=== PATIENT | female | born 1990 | race Caucasian/White ===

== ENCOUNTER 2017-08-21 19:34 | Inpatient (IN) | payer OTHER ==
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
[2017-08-21 19:53] LABS: PLATELET COUNT 333 10^3/uL (150-400)
[2017-08-21 20:00] LABS: INR 0.96 (0.83-1.16)
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
[2017-08-21] MEDS ORDERED: PROPOFOL 200 MG/20 ML VIAL ONE (20:42)
[2017-08-21] MEDS ORDERED: HYDROmorphONE/DILAUDID 2 MG/ML INJ ONE (20:42)
[2017-08-21] MEDS ORDERED: NALOXONE HCL 0.4 MG/ML INJ IVP PRN (20:42)
[2017-08-21] MEDS ORDERED: ONDANSETRON DISINTEGRATING 4 MG TAB PO PRN ×2 (20:42→21:25)
[2017-08-21] MEDS ORDERED: fentaNYL 100 MCG/2 ML INJ ONE ×3 (20:42→23:34)
[2017-08-21] MEDS ORDERED: BUPIVACAINE 0.25% 30 ML SDV ONE (21:19)
[2017-08-21] MEDS ORDERED: EPINEPHrine 1 MG/ML INJ ONE (21:20)
[2017-08-21] MEDS ORDERED: THROMBIN (BOVINE) 5,000 UNIT VIAL TP ONE (21:20)
[2017-08-21] MEDS ORDERED: CHLORHEXIDINE GLUC HIBICLENS 118 ML BTL TP ONE (21:21)
[2017-08-21] MEDS ORDERED: BACITRACIN 50,000 UNITS/10 ML SYR IRR ONE (21:21)
[2017-08-21] MEDS ORDERED: AVITENE POWDER 1 GM JAR TP ONE (21:21)
[2017-08-21] MEDS ORDERED: METHOCARBAMOL 750 MG TAB PO PRN (21:25)
[2017-08-21] MEDS ORDERED: BISACODYL 10 MG SUPP PR PRN (21:25)
[2017-08-21] MEDS ORDERED: diphenhydrAMINE 25 MG CAP PO PRN (21:25)
[2017-08-21] MEDS ORDERED: POLYETHYLENE GLYCOL 3350 17 GM PKT PO PRN (21:25)
[2017-08-21] MEDS ORDERED: LACTULOSE 20 GM/30 ML UDCUP PO PRN (21:25)
[2017-08-21] MEDS ORDERED: MAGNESIUM HYDROXIDE 30 ML UDCUP PO PRN (21:25)
[2017-08-21] MEDS ORDERED: THROMBIN (BOVINE) 20,000 UNIT VIAL TP ONE (21:27)
[2017-08-21] MEDS ORDERED: PHENYLEPHRINE HCL 50 MG in NS 250 ML IV ONE (22:00)
[2017-08-21] MEDS ORDERED: SURGIFLO MATRIX KIT WITH THROMBIN 8 ML TP ONE (22:03)
[2017-08-21] MEDS ORDERED: DEXAMETHASONE 4 MG/ML VIAL ONE (23:34)
[2017-08-21] MEDS ORDERED: PHENYLEPHRINE HCL 100 MCG/ML SYR ONE (23:34)
[2017-08-21] MEDS ORDERED: ROCURONIUM 50 MG/5 ML VIAL ONE (23:34)
[2017-08-21] MEDS ORDERED: ONDANSETRON 4 MG/2 ML VIAL ONE (23:34)
--- NOTE | 2017-08-22 00:03 | PDANEPAE ---
ANE History of Present Illness T8 Compression Fracture ANE Past Medical History - Cardiovascular History Hx Hypertension: No Hx Arrhythmias: No Hx Chest Pain: No Hx Coronary Artery / Peripheral Vascular Disease: No Hx CHF / Valvular Disease: No Hx Palpitations: No - Pulmonary History Hx COPD: No Hx Asthma/Reactive Airway Disease: No Hx Recent Upper Respiratory Infection: No Hx Oxygen in Use at Home: No - Neurologic History Neurologic History Comment: T8 Compression Fracture - Endocrine History Hx Diabetes: No ANE Review of Systems Review of systems is: negative Review of Systems: Lower body no sensation - Exercise capacity METS (RN): 4 METS ANE Patient History - Allergies Allergies/Adverse Reactions: amoxicillin Allergy (Verified 08/21/17 20:37) - Smoking Hx Smoking Status: Never smoked ANE Labs/Vital Signs - Labs Result Diagrams: 08/21/17 17:25 08/21/17 17:25 - Vital Signs Blood Pressure: 123/74 Heart Rate: 59 Respiratory Rate: 68 O2 Sat (%): 100 Height: 157.48 cm Weight: 52.163 kg ANE Physical Exam - Airway Neck exam: C-collar in place Mallampati Score: Class 2 Mouth exam: normal dental/mouth exam - Pulmonary Pulmonary: no respiratory distress - Cardiovascular Cardiovascular: regular rate and rhythym - ASA Status ASA Status: III, E ANE Anesthesia Plan Anesthesia Plan: general endotracheal anesthesia Lines/Monitors: arterial line, central line Urgent/Emergent Case: Heidy pena completed preop but documented later for safe timely pt care
--- NOTE | 2017-08-22 00:23 | POSTOPPROG ---
Post Op Note Date of Operation: 08/22/17 Surgeon: Nelson Zendejas Blister Pack Operator: Ramu Rasmussen Anesthesiologist: yolanda duncan Anesthesia: GET(General Endotracheal) Pre-op Diagnosis: T8 burst fx and SCI Post-op Diagnosis: T8 burst fx and SCI Indication: unstable spinal column Procedure: T6-10 PSF, T7-8 laminectomy, partial T8 corpectomy Findings: unstable fx Inf/Abcess present in the surg proc area at time of surgery?: No Depth: Organ Space EBL: 100-500 Drains: Ky Figueroa
[2017-08-22] MEDS ORDERED: NOREPINEPHRINE/NS 500 ML IV SCH (00:30)
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
[2017-08-22] MEDS ORDERED: fentaNYL 100 MCG/2 ML INJ ONE (00:46)
[2017-08-22] MEDS: ONDANSETRON 4 MG/2 ML VIAL IVP PRN (01:00)
[2017-08-22] MEDS ORDERED: ONDANSETRON 4 MG/2 ML VIAL ONE (01:06)
--- NOTE | 2017-08-22 01:06 | POSTANESTH ---
Post Anesthetic Evaluation Cardiovascular Status: Normal, Stable, Tx Hyper/Hypo-tension Respiratory Status: Normal, Stable Level of Consciousness/Mental Status: Can Participate in Eval Pain Control: Adequate, Prn Tx Ordered Nausea/Vomiting Control: Adequate, Prn Tx Ordered Complications Possibly Related to Anesthesia: None Noted
[2017-08-22] MEDS ORDERED: ceFAZolin 2 GM/SWFI 2 GM/20 ML SYR IVP SCH (01:15)
[2017-08-22] MEDS ORDERED: NOREPINEPHRINE BITARTRATE 4 MG in NS 500 ML IV SCH (01:30)
[2017-08-22] MEDS ORDERED: METOCLOPRAMIDE 10 MG/2 ML VIAL ONE (01:32)
[2017-08-22] MEDS: GABAPENTIN 300 MG CAP PO SCH ×4 (01:44→22:11)
[2017-08-22] MEDS ORDERED: SCOPOLAMINE HYDROBROMIDE 1 MG/3 DAYS PATCH TD SCH (01:45)
[2017-08-22] MEDS: BACITRACIN ZINC 14.2 GM OINTTUBE TP SCH ×3 (01:45→23:14)
[2017-08-22] MEDS: METOCLOPRAMIDE 10 MG/2 ML VIAL IVP PRN (01:45)
[2017-08-22] MEDS: LR 1,000 ML IV SCH ×3 (01:54→23:14)
[2017-08-22] MEDS: HYDROmorphone HCL/NS 0.5 MG/ML SYR IVP PRN ×6 (01:57→22:07)
[2017-08-22] MEDS: oxyCODONE IR 5 MG TAB PO PRN ×4 (05:12→20:03)
[2017-08-22] MEDS: ACETAMINOPHEN 325 MG TAB PO PRN ×3 (05:12→20:02)
[2017-08-22 05:32] LABS: PLATELET COUNT 240 10^3/uL (150-400)
--- NOTE | 2017-08-22 08:09 | SOAPPROG ---
SOAP Progress Note Assessment/Plan: Assessment: 27 yo F POD #1 T6-T10 instrumentation and fusion for T8 burst fracture T8 YISSEL A spinal cord injury Plan: neuro: stable, still no sensation below lower chest PT/OT cervical spine cleared, patient does not need hard collar scd/khloe for dvt propylaxis, lovenox starts POD #2 keep MAPs > 85 for 7 days, on levo now, will give bolus of albumin and can switch to carroll if needed thoracic x-rays today will need inpatient rehab, likely [facility] discussed with Dr Zendejas please call with neuro changes 08/22/17 08:05 Subjective: general shoulder pain this am, thoracic spine feels better today, no neck pain, no arm pain or arm paresthesias. Objective: Vital Signs Temp Pulse Resp BP Pulse Ox 37.2 C 85 18 142/66 H 95 08/22/17 06:00 08/22/17 07:00 08/22/17 07:00 08/22/17 07:00 08/22/17 07:00 Laboratory Results 08/22/17 04:45 08/22/17 04:45 08/21/17 08/22/17 08/23/17 05:59 05:59 05:59 Intake Total 1702.5 Output Total 800 Balance 902.5 PT 13.0 SEC (12.0-15.0) 08/21/17 17:25 INR 0.96 (0.83-1.16) 08/21/17 17:25 AAOx4, +FC PERRL, EOMI, no facial droop 5/5 arms, 0/5 legs no sensation below approximately T8 C/D/I no pain with palpation of cervical spine, no pain with cervical ROM ICD10 Worksheet Patient Problems: Problems Problem Status Onset Abrasions of multiple sites Acute Burst fracture of thoracic vertebra Acute Hemothorax on left Acute Ribs, multiple fractures Acute Spinal cord injury at T7-T12 level Acute
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
[2017-08-22] MEDS ORDERED: BISACODYL 10 MG SUPP PR SCH (09:00)
[2017-08-22] MEDS ORDERED: ALBUMIN 5% 250 ML IV ONE (09:00)
[2017-08-22] MEDS ORDERED: ENOXAPARIN 40 MG/0.4 ML SYR SC SCH (09:00)
[2017-08-22] MEDS: FAMOTIDINE 20 MG TAB PO SCH ×2 (09:01→20:03)
--- NOTE | 2017-08-22 09:09 | SOAPPROG ---
SOAP Progress Note Assessment/Plan: Assessment: thoracic spine cord injury, s/p orif fusion. left hemothorax and rib fx Plan: leave chest tube in today slowly institiue diet. maintain map greater than 65 with carroll or levo start bowel protocol. 08/22/17 09:03 Subjective: alert, minimal pain. can't move lower extremities, no feeling at toes. Objective: heent wnl lungs clear heart nml s1s2 no m abd soft. hands without hand mild tpoa;in with motion r shoulder. lower extremities withoiut sensation or movement labs all ok chesttube- no air leak Vital Signs Temp Pulse Resp BP Pulse Ox 37.2 C 86 16 137/65 H 91 L 08/22/17 06:00 08/22/17 08:00 08/22/17 08:00 08/22/17 08:00 08/22/17 08:00 Laboratory Results 08/22/17 04:45 08/22/17 04:45 08/21/17 08/22/17 08/23/17 05:59 05:59 05:59 Intake Total 1702.5 Output Total 800 225 Balance 902.5 -225 PT 13.0 SEC (12.0-15.0) 08/21/17 17:25 INR 0.96 (0.83-1.16) 08/21/17 17:25 ICD10 Worksheet Patient Problems: Problems Problem Status Onset Abrasions of multiple sites Acute Burst fracture of thoracic vertebra Acute Hemothorax on left Acute Ribs, multiple fractures Acute Spinal cord injury at T7-T12 level Acute
--- NOTE | 2017-08-22 09:11 | TRAUMAPNT ---
Trauma Tertiary Progress Note Assessment/Plan: Assessment: thoracic spine cord injury, s/p orif fusion. left hemothorax and rib fx Plan: leave chest tube in today slowly institiue diet. maintain map greater than 65 with carroll or levo start bowel protocol. 08/22/17 09:03 Objective: Vital Signs Temp Pulse Resp BP Pulse Ox 37.2 C 86 16 137/65 H 91 L 08/22/17 06:00 08/22/17 08:00 08/22/17 08:00 08/22/17 08:00 08/22/17 08:00 Laboratory Results 08/22/17 04:45 08/22/17 04:45 08/21/17 08/22/17 08/23/17 05:59 05:59 05:59 Intake Total 1702.5 Output Total 800 225 Balance 902.5 -225 PT 13.0 SEC (12.0-15.0) 08/21/17 17:25 INR 0.96 (0.83-1.16) 08/21/17 17:25 pot examained- no new injuries identified. - C-Spine Clearance Cervical Spine Cleared: Yes Provider who Cleared Cervical Spine: veto
[2017-08-22] MEDS: SENNOSIDES/DOCUSATE SODIUM TAB PO SCH ×3 (09:51→20:03)
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
--- NOTE | 2017-08-22 15:42 | ASMTCMCOM ---
CM Note CM Note Notes: Patient's parents did arrive from [place]. Spoke with patient and her parents. They would like the referral to [facility] to be sent which was done today. Left a message for Magdalena at [facility] to see if she can make suggestions for rentals close to [facility] for patient's parents. Also gave them some suggestions for getting a hotel while they are here in [place]. Family seems to be coping well initially. CM will follow. Date Signed: 08/22/2017 03:42 PM Electronically Signed By:Cherelle Webber LCSW
[2017-08-22] MEDS: PHENYLEPHRINE HCL 50 MG in NS 250 ML IV SCH (20:57)
[2017-08-23] MEDS: PHENYLEPHRINE HCL 50 MG in NS 250 ML IV SCH ×3 (01:40→20:21)
[2017-08-23] MEDS: HYDROmorphone HCL/NS 0.5 MG/ML SYR IVP PRN (04:18)
[2017-08-23] MEDS: ONDANSETRON 4 MG/2 ML VIAL IVP PRN ×2 (04:20→09:08)
[2017-08-23] MEDS: ACETAMINOPHEN 325 MG TAB PO PRN ×3 (05:20→17:11)
[2017-08-23] MEDS: GABAPENTIN 300 MG CAP PO SCH ×3 (05:20→21:43)
[2017-08-23] MEDS: METOCLOPRAMIDE 10 MG/2 ML VIAL IVP PRN (06:43)
[2017-08-23] MEDS: SENNOSIDES/DOCUSATE SODIUM TAB PO SCH ×3 (08:04→21:46)
[2017-08-23] MEDS: ENOXAPARIN 40 MG/0.4 ML SYR SC SCH (08:04)
[2017-08-23] MEDS: FAMOTIDINE 20 MG TAB PO SCH ×2 (08:04→21:43)
[2017-08-23] MEDS: BACITRACIN ZINC 14.2 GM OINTTUBE TP SCH ×2 (08:04→21:45)
--- NOTE | 2017-08-23 09:10 | NEUSURGPN ---
Assessment/Plan: Assessment: 27 yo F POD #2 T6-T10 instrumentation and fusion for T8 burst fracture T8 YISSEL A spinal cord injury Plan: neuro: stable, still no sensation below lower chest PT/OT cervical spine cleared, patient does not need hard collar scd/khloe for dvt propylaxis, lovenox starts today keep MAPs > 85 for 7 days, on levo now, will give bolus of albumin and can switch to carroll if needed thoracic x-rays show well placed hardware and excellent alignment. reviewed with pt and family today. JOHN drain - likely remove tomorrow Dressing changed today and incision cdi will need inpatient rehab, likely [facility] discussed with Dr Zendejas please call with neuro changes Subjective: Pt resting in bed, has continued numbness in trunk and legs. States that the leg tingling has lessened. Objective: AAOx4, +FC PERRL, EOMI, no facial droop 5/5 arms, 0/5 legs no sensation below approximately T8 C/D/I dressing changed JPx1 Urinary Catheter in Place: Yes Urinary Catheter Indication: Surgical Requirement Catheter Insertion Date: 08/22/17 - Physician Discussed Patient with : Aashish Neurosurgery Physical Exam - Vitals, I&O, Labs I and O 08/22/17 08/23/17 08/24/17 05:59 05:59 05:59 Intake Total 1702.5 4045 Output Total 800 2790 Balance 902.5 1255 Weight 52.163 kg Intake: Oral (ml) 100 660 IV Infused (ml) 1602.5 3385 Lr 1,000 ml @ 125 mls/hr 387 1886 IV CONT AMINA Rx#: [id number] Norepinephrine Bitartrate 160 844 4 mg In Ns 500 ml @ Per Protocol IV CONT AMINA Rx#: [id number] Phenylephrine HCl 50 mg 655 In Ns 250 ml @ Per Protocol IV CONT AMINA Rx#: [id number] Phenylephrine HCl 50 mg 55.5 In Ns 250 ml @ Per Protocol IV ONCALL ONE Rx #:[id number] Output: Urine (ml) 640 2600 Catheter 540 2600 Chest Tube Output (ml) 40 140 Left Pleural 40 140 JOHN Drain Output (ml) 120 50 #1 Posterior Back 120 50 Other: Intake Quantity Yes Sufficient Number of Stools Incontinence 0 1 Number of Emesis 1 Occurrences Vital Signs Temp Pulse Resp BP Pulse Ox 37.3 C 68 16 133/92 H 99 08/23/17 08:00 08/23/17 08:00 08/23/17 08:00 08/23/17 08:00 08/23/17 08:00 Laboratory Results 08/22/17 04:45 ICD10 Worksheet Patient Problems: Problems Problem Status Onset Abrasions of multiple sites Acute Burst fracture of thoracic vertebra Acute Hemothorax on left Acute Ribs, multiple fractures Acute Spinal cord injury at T7-T12 level Acute
[2017-08-23] MEDS: oxyCODONE IR 5 MG TAB PO PRN ×3 (09:26→21:44)
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
[2017-08-23] MEDS: LR 1,000 ML IV SCH (12:48)
--- NOTE | 2017-08-23 16:10 | ASMTCMCOM ---
CM Note CM Note Notes: sukhdev Parekh RN from [facility] ([phone]) came to see patient and family today. Patient qualifies for admission, which will likely occur early next week. Case Management will follow. Date Signed: 08/23/2017 04:10 PM Electronically Signed By:Sheila Best RN
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
[2017-08-23] MEDS: BISACODYL 10 MG SUPP PR SCH (21:45)
[2017-08-24] MEDS: PHENYLEPHRINE HCL 50 MG in NS 250 ML IV SCH ×3 (03:14→21:22)
[2017-08-24] MEDS: ACETAMINOPHEN 325 MG TAB PO PRN (05:03)
[2017-08-24] MEDS: GABAPENTIN 300 MG CAP PO SCH ×3 (05:04→21:12)
[2017-08-24] MEDS: oxyCODONE IR 5 MG TAB PO PRN ×3 (05:04→21:19)
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
[2017-08-24] MEDS: ENOXAPARIN 40 MG/0.4 ML SYR SC SCH (09:18)
[2017-08-24] MEDS: MULTIVITAMINS 1 EACH TAB PO SCH (09:18)
[2017-08-24] MEDS: BACITRACIN ZINC 14.2 GM OINTTUBE TP SCH ×2 (09:18→21:16)
[2017-08-24] MEDS: FAMOTIDINE 20 MG TAB PO SCH ×2 (09:18→21:12)
[2017-08-24] MEDS: SENNOSIDES/DOCUSATE SODIUM TAB PO SCH ×2 (09:19→21:12)
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
--- NOTE | 2017-08-24 14:58 | ASMTCMCOM ---
CM Note CM Note Notes: Spoke with patient's mother who says the interview with [facility] went well and they are making arrangements to get an apartment on campus. Patient gets a repeat chest x-ray today. She is working with therapies and spent some time outside today. CM will follow. Date Signed: 08/24/2017 02:57 PM Electronically Signed By:Cherelle Webber LCSW
[2017-08-24] MEDS: LR 1,000 ML IV SCH (17:14)
[2017-08-24] MEDS: BISACODYL 10 MG SUPP PR SCH (21:16)
[2017-08-25] MEDS: GABAPENTIN 300 MG CAP PO SCH ×3 (05:30→22:18)
[2017-08-25] MEDS: PHENYLEPHRINE HCL 50 MG in NS 250 ML IV SCH ×3 (05:30→22:18)
[2017-08-25] MEDS: LR 1,000 ML IV SCH ×2 (05:35→17:08)
[2017-08-25 05:48] LABS: PLATELET COUNT 235 10^3/uL (150-400)
[2017-08-25] MEDS: oxyCODONE IR 5 MG TAB PO PRN ×3 (07:10→19:59)
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
[2017-08-25] MEDS: ENOXAPARIN 40 MG/0.4 ML SYR SC SCH (09:03)
[2017-08-25] MEDS: FAMOTIDINE 20 MG TAB PO SCH ×2 (09:03→20:00)
[2017-08-25] MEDS: BACITRACIN ZINC 14.2 GM OINTTUBE TP SCH ×2 (09:03→20:01)
[2017-08-25] MEDS: MULTIVITAMINS 1 EACH TAB PO SCH (09:03)
[2017-08-25] MEDS: SENNOSIDES/DOCUSATE SODIUM TAB PO SCH ×2 (09:07→20:00)
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
[2017-08-25] MEDS: BISACODYL 10 MG SUPP PR SCH (20:02)
[2017-08-26] MEDS: oxyCODONE IR 5 MG TAB PO PRN ×4 (03:29→21:35)
[2017-08-26] MEDS: GABAPENTIN 300 MG CAP PO SCH ×3 (06:16→21:34)
--- NOTE | 2017-08-26 08:23 | NEUSURGPN ---
Date of Surgery: 08/21/17 Post Op Day: 5 Assessment/Plan: Assessment: 27 yo F POD #5 T6-T10 instrumentation and fusion for T8 burst fracture T8 YISSEL A spinal cord injury Plan: -neuro: stable, still no sensation below lower chest-loss of sensation at T7/T8 level, still no changes to legs -PT/OT-CPM -pt has had some high urine output-BMP ordered -cervical spine cleared, patient does not need hard collar -pt with some left hand and wrist pain-Dr Givens ordered xrays and these were reported as negative -scd/khloe for dvt propylaxis, lovenox started -keep MAPs > 80 for 7 days (08/28) -thoracic x-rays show well placed hardware and excellent alignment. Already reviewed with pt and family already -JOHN drain - removed already -CDI -will need inpatient rehab, likely [facility] planned for -discussed with Dr Zendejas -please call with neuro changes Subjective: No new complaints or concerns. Pt with family in room. No infante/neck/chest or new abd complaints. Objective: AAO x 3 NAD VSS Motor 5/5 BUE Firing core muscles No tone/sensation BLE thoracic sensation loss at T/T8 Incision dressed CDI Neuro Check Frequency: per ordered Urinary Catheter in Place: Yes Urinary Catheter Indication: Other (Use Comment) (T7/8 paralysis) Catheter Insertion Date: 08/22/17 - Physician Discussed Patient with : Aashish Neurosurgery Physical Exam - Vitals, I&O, Labs I and O 08/25/17 08/26/17 08/27/17 05:59 05:59 05:59 Intake Total 3425 3800 Output Total 5300 5550 Balance -1875 -1750 Intake: Oral (ml) 1500 1600 IV Infused (ml) 1925 2200 Lr 1,000 ml @ 125 mls/hr 1297 1529 IV CONT AMINA Rx#: [id number] Phenylephrine HCl 50 mg 628 671 In Ns 250 ml @ Per Protocol IV CONT AMINA Rx#: [id number] Output: Urine (ml) 5300 5550 Catheter 4150 4350 Incontinence 1150 1200 Other: Number of Stools Catheter 1 Incontinence 3 Vital Signs Temp Pulse Resp BP Pulse Ox 37.7 C 61 24 H 117/64 96 08/26/17 00:00 08/26/17 07:00 08/26/17 07:00 08/26/17 07:00 08/26/17 07:00 Laboratory Results 08/25/17 05:20 08/22/17 04:45 ICD10 Worksheet Patient Problems: Problems Problem Status Onset Abrasions of multiple sites Acute Burst fracture of thoracic vertebra Acute Hemothorax on left Acute Ribs, multiple fractures Acute Spinal cord injury at T7-T12 level Acute
[2017-08-26] MEDS: SENNOSIDES/DOCUSATE SODIUM TAB PO SCH ×2 (08:32→21:34)
[2017-08-26] MEDS: BISACODYL 10 MG SUPP PR SCH (08:32)
[2017-08-26] MEDS: BACITRACIN ZINC 14.2 GM OINTTUBE TP SCH ×2 (08:33→21:36)
[2017-08-26] MEDS: MULTIVITAMINS 1 EACH TAB PO SCH (08:33)
[2017-08-26] MEDS: ENOXAPARIN 40 MG/0.4 ML SYR SC SCH (08:33)
[2017-08-26] MEDS: FAMOTIDINE 20 MG TAB PO SCH ×2 (08:33→21:34)
[2017-08-26] MEDS: PHENYLEPHRINE HCL 50 MG in NS 250 ML IV SCH ×3 (10:21→23:50)
--- NOTE | 2017-08-26 10:49 | SOAPPROG ---
SOAP Progress Note Assessment/Plan: Assessment: ALERT, COMFORTABLE, AFEBRILE, VITAL SIGNS STABLE WOUND OKAY TOLERATING PT WITH BRACE URINE OUTPUT GOOD NEURO UNCHANGED WITH PARALYSIS FROM MID THORAX DOWN MAP SUPPORTED WITH PRESSOR DRIP CHEST TUBE Plan: CONTINUE MAP SUPPORT/SOTO REHAB NEXT WEEK 08/26/17 10:48 Objective: Vital Signs Temp Pulse Resp BP Pulse Ox 36.6 C 77 22 H 125/72 H 96 08/26/17 08:00 08/26/17 10:00 08/26/17 10:00 08/26/17 10:00 08/26/17 10:00 Laboratory Results 08/25/17 05:20 08/22/17 04:45 08/25/17 08/26/17 08/27/17 05:59 05:59 05:59 Intake Total 3425 3800 Output Total 5300 5550 200 Balance -1875 -1750 -200 PT 13.0 SEC (12.0-15.0) 08/21/17 17:25 INR 0.96 (0.83-1.16) 08/21/17 17:25 ICD10 Worksheet Patient Problems: Problems Problem Status Onset Abrasions of multiple sites Acute Burst fracture of thoracic vertebra Acute Hemothorax on left Acute Ribs, multiple fractures Acute Spinal cord injury at T7-T12 level Acute
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
[2017-08-26] MEDS: LIDOCAINE 4%/MENTHOL 1% PATCH TD SCH (16:46)
[2017-08-26] MEDS: PSYLLIUM METAMUCIL 1 PKT PO SCH (16:46)
[2017-08-26] MEDS ORDERED: ENOXAPARIN 40 MG/0.4 ML SYR SC SCH (21:00)
[2017-08-26] MEDS: PATCH REMOVAL 1 EA PATCH TD SCH (21:35)
[2017-08-26] MEDS: ENOXAPARIN 30 MG/0.3 ML SYR SC SCH (21:35)
[2017-08-27] MEDS: oxyCODONE IR 5 MG TAB PO PRN ×4 (04:29→22:14)
[2017-08-27] MEDS ORDERED: ALTEPLASE 2 MG VIAL IVP PRN (05:06)
[2017-08-27] MEDS: GABAPENTIN 300 MG CAP PO SCH ×3 (05:23→21:15)
[2017-08-27] MEDS: PHENYLEPHRINE HCL 50 MG in NS 250 ML IV SCH (05:38)
[2017-08-27 06:18] LABS: PLATELET COUNT 316 10^3/uL (150-400)
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
[2017-08-27] MEDS: BISACODYL 10 MG SUPP PR SCH (08:32)
[2017-08-27] MEDS: BACITRACIN ZINC 14.2 GM OINTTUBE TP SCH ×2 (08:57→20:29)
[2017-08-27] MEDS: ENOXAPARIN 30 MG/0.3 ML SYR SC SCH ×2 (09:38→20:28)
[2017-08-27] MEDS: FAMOTIDINE 20 MG TAB PO SCH (09:39)
[2017-08-27] MEDS: SENNOSIDES/DOCUSATE SODIUM TAB PO SCH ×2 (09:39→20:27)
[2017-08-27] MEDS: MULTIVITAMINS 1 EACH TAB PO SCH (09:39)
[2017-08-27] MEDS: LIDOCAINE 4%/MENTHOL 1% PATCH TD SCH (09:41)
[2017-08-27] MEDS: PSYLLIUM METAMUCIL 1 PKT PO SCH (09:44)
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
--- NOTE | 2017-08-27 12:02 | ASMTCMCOM ---
CM Note CM Note Notes: Spoke with sukhdev Parekh RN at [facility] ([phone]). They are planning to receive patient Suns/ of this week, after she is completely off pressors. They are flexible with exact admission day. Case Management will continue to provide updates to [facility]. Date Signed: 08/27/2017 12:01 PM Electronically Signed By:Sheila Best RN
[2017-08-27] MEDS: HYDROmorphone HCL/NS 0.5 MG/ML SYR IVP PRN (13:35)
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
[2017-08-27] MEDS ORDERED: PHENYLEPHRINE HCL 50 MG in NS 250 ML IV SCH (15:30)
[2017-08-27] MEDS: PATCH REMOVAL 1 EA PATCH TD SCH (20:27)
[2017-08-28] MEDS: GABAPENTIN 300 MG CAP PO SCH ×3 (06:31→21:32)
[2017-08-28] MEDS: oxyCODONE IR 5 MG TAB PO PRN ×3 (06:48→18:40)
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
[2017-08-28] MEDS: BISACODYL 10 MG SUPP PR SCH (08:32)
[2017-08-28] MEDS: LIDOCAINE 4%/MENTHOL 1% PATCH TD SCH (08:32)
[2017-08-28] MEDS: SENNOSIDES/DOCUSATE SODIUM TAB PO SCH ×2 (08:32→21:32)
[2017-08-28] MEDS: PSYLLIUM METAMUCIL 1 PKT PO SCH (08:32)
[2017-08-28] MEDS: MULTIVITAMINS 1 EACH TAB PO SCH (08:32)
[2017-08-28] MEDS: ENOXAPARIN 30 MG/0.3 ML SYR SC SCH ×2 (08:33→21:32)
[2017-08-28] MEDS: BACITRACIN ZINC 14.2 GM OINTTUBE TP SCH ×2 (08:34→21:32)
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
[2017-08-28] MEDS: MIDODRINE HCL 5 MG TAB PO SCH ×2 (11:52→15:20)
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
[2017-08-28] MEDS: PATCH REMOVAL 1 EA PATCH TD SCH (21:34)
[2017-08-29] MEDS: oxyCODONE IR 5 MG TAB PO PRN ×3 (02:03→19:40)
[2017-08-29] MEDS: GABAPENTIN 300 MG CAP PO SCH ×3 (05:10→21:21)
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
[2017-08-29] MEDS: BISACODYL 10 MG SUPP PR SCH (08:36)
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
[2017-08-29] MEDS: LIDOCAINE 4%/MENTHOL 1% PATCH TD SCH (08:38)
[2017-08-29] MEDS: SENNOSIDES/DOCUSATE SODIUM TAB PO SCH ×2 (09:44→19:40)
[2017-08-29] MEDS: MULTIVITAMINS 1 EACH TAB PO SCH (09:45)
[2017-08-29] MEDS: ENOXAPARIN 30 MG/0.3 ML SYR SC SCH ×2 (09:45→21:21)
[2017-08-29] MEDS: MIDODRINE HCL 5 MG TAB PO SCH ×3 (09:45→16:44)
[2017-08-29] MEDS: PSYLLIUM METAMUCIL 1 PKT PO SCH (09:48)
[2017-08-29] MEDS: BACITRACIN ZINC 14.2 GM OINTTUBE TP SCH (09:53)
[2017-08-29] MEDS ORDERED: MIDODRINE HCL 5 MG TAB PO ONE (10:00)
--- NOTE | 2017-08-29 12:11 | PDIAF ---
- Diagnosis Code Status: Full Code - Medication Management Discharge Medications: Medications to Continue on Transfer Multivitamins [Multivitamin (*)] 1 each PO DAILY 08/22/17 [Last Taken Unknown] Acetaminophen [Tylenol 325mg (*)] 325 - 650 mg PO Q4HRS PRN tab 08/29/17 [Last Taken Unknown] Bacitracin Zinc [Bacitracin Ointment Tube] 1 joe TP BID oint 08/29/17 [Last Taken Unknown] Enoxaparin [Lovenox] 30 mg SC BID syr 08/29/17 [Last Taken Unknown] Gabapentin [Neurontin 300 MG (*)] 300 mg PO Q8HRS cap 08/29/17 [Last Taken Unknown] Lidocaine 4%/Menthol 1% [Icy Hot Lidocaine/Menthol 4%/1% Patch (*)] 1 patch TD DAILY patch 08/29/17 [Last Taken Unknown] Methocarbamol [Robaxin 750 mg (*)] 750 mg PO QID PRN tab 08/29/17 [Last Taken Unknown] Midodrine HCl [Proamatine/Midodrin] 10 mg PO TID@0800,1200,1600 tab 08/29/17 [ Last Taken Unknown] Naloxone HCl [Narcan] 0.4 mg IVP PRN PRN inj 08/29/17 [Last Taken Unknown] Ondansetron Odt [Zofran Odt 4 mg (*)] 4 - 8 mg PO Q6HRS PRN tab 08/29/17 [Last Taken Unknown] Patch Removal 1 ea TD DAILY21 patch 08/29/17 [Last Taken Unknown] Polyethylene Glycol 3350 [Miralax 17 gm (*)] 17 gm PO DAILY PRN pkt 08/29/17 [ Last Taken Unknown] Psyllium Seed [Metamucil (*)] 1 each PO DAILY pkt 08/29/17 [Last Taken Unknown] Sennosides/Docusate Sodium [Senokot-S] 1 - 2 tab PO BID tab 08/29/17 [Last Taken Unknown] diphenhydrAMINE [Benadryl 25 MG (*)] 25 - 50 mg PO Q6HRS PRN cap 08/29/17 [ Last Taken Unknown] diphenhydrAMINE [Benadryl Injection] 25 - 50 mg IVP Q6HRS PRN inj 08/29/17 [ Last Taken Unknown] oxyCODONE IR [Oxycodone Ir (*)] 5 - 10 mg PO Q4HRS PRN tab 08/29/17 [Last Taken Unknown] Discharge Medications: Refer to the Discharge Home Medication list for PRN reason. PICC Care - Routine: N/A - Orders Services needed: Registered Nurse, Master Industrial Trainer, Physical Therapy, Occupational Therapy (high protein, high fiber) Diet Recommendation: other (high protein) Diet Texture: Regular Texture Diet Weigh Patient: weekly Olvera: Yes Wound Care Instructions: change dressing over spine as needed. May shower with dressing off. Please check daily and report any changes to Dr. Zendejas Additional Instructions: weight bearing as tolerated RUE thoracic brace while out of bed may shower with assist and with dressing off. Do not leave dressing on during shower or if it gets wet turn side to side q 1-2 hours and prn transfer to [facility] via [facility] when bed available - Labs/Radiology HCT/HGB Date: 09/03/17 - Follow Up Care Current Providers and Referrals: Patient,NotPresent [Unknown] - As per Instructions Nelson Zendejas MD [Medical Doctor] - follow up as scheduled (Follow up in 2 months with Cervical spine xrays AP/Lat) Rusty Givens MD [Medical Doctor] -
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
--- NOTE | 2017-08-29 14:18 | ASMTCMCOM ---
CM Note CM Note Notes: Patient is ready to transfer to [facility]. They are unable to take her today so d/c set for tomorrow morning. Patient will be picked up [facility] stretcher at 10:00 AM. Discharge summaries completed by Dr. Givens and forwarded to [place] today via [employer]. Contacted patient's insurance company to confirm they will pay for ambulance transfer tomorrow and they stated she was covered. I spoke with Merlyn Berman and the reference number is [id number]. Merlyn's number is [phone]. Nurse to nurse report tomorrow and that number is [phone]. We have ordered all of her imaging on disc and this should go with patient tomorrow. Checked on housing for the patient's parents and it is set up. They need to check in with the housing department on [address] and poultry picker their keys which I let Albina know. CM will follow. Date Signed: 08/29/2017 02:17 PM Electronically Signed By:Cherelle Webber LCSW
[2017-08-29 21:21] LABS: PLATELET COUNT 366 10^3/uL (150-400)
[2017-08-29] MEDS: PATCH REMOVAL 1 EA PATCH TD SCH (21:21)
[2017-08-30] MEDS: BACITRACIN ZINC 14.2 GM OINTTUBE TP SCH ×2 (00:21→08:02)
[2017-08-30] MEDS: oxyCODONE IR 5 MG TAB PO PRN ×2 (02:34→07:08)
[2017-08-30] MEDS: GABAPENTIN 300 MG CAP PO SCH (05:42)
--- NOTE | 2017-08-30 07:27 | NEUSURGPN ---
Date of Surgery: 08/21/17 Post Op Day: 9 Assessment/Plan: Assessment: 27 yo F POD #9 T6-T10 instrumentation and fusion for T8 burst fracture T8 YISSEL A spinal cord injury Plan: -neuro: stable, feels new pain in left rib cage-loss of sensation at T7/T8 level , still no changes to legs -PT/OT-CPM -cervical spine cleared, patient does not need hard collar -scd/khloe for dvt propylaxis, lovenox started -Ok to relax MAP parameters, discontinue carroll-SBP stable 90-100 -SDU status-ok to transfer to floor -Ok to discharge to [facility] when bed available, hopefully today -thoracic x-rays show well placed hardware and excellent alignment. Already reviewed with pt and family already -Patient d/w Dr Zendejas as well -please call with neuro changes Subjective: Awake and alert. NAD. Pt with some expected back pain. No f/c/n/v/d. No infante/ neck/cp/abd or gu complaints. Objective: AAOx3, NAD AFVSS Motor 5/5 BUE Able to flex core muscles Plegic BLE Incision dressed Neuro Check Frequency: per routine Urinary Catheter in Place: No Catheter Insertion Date: 08/22/17 - Physician Discussed Patient with : Aashish Patient Seen by : Aashish Neurosurgery Physical Exam - Vitals, I&O, Labs I and O 08/29/17 08/30/17 08/31/17 05:59 05:59 05:59 Intake Total 2000 1100 Output Total 1550 1175 Balance 450 -75 Intake: Oral (ml) 2000 1100 Output: Urine (ml) 1550 1175 Catheter 1550 1175 Other: Number of Stools Catheter 1 0 Vital Signs Temp Pulse Resp BP Pulse Ox 37.2 C 72 20 93/53 L 97 08/30/17 02:00 08/30/17 05:49 08/30/17 05:49 08/30/17 05:49 08/29/17 22:00 Laboratory Results 08/29/17 20:50 08/29/17 20:50 ICD10 Worksheet Patient Problems: Problems Problem Status Onset Abrasions of multiple sites Acute Burst fracture of thoracic vertebra Acute Fracture of transverse process of cervical vertebra Acute Hemothorax on left Acute Ribs, multiple fractures Acute Spinal cord injury at T7-T12 level Acute
[2017-08-30] MEDS: MULTIVITAMINS 1 EACH TAB PO SCH (08:00)
[2017-08-30] MEDS: SENNOSIDES/DOCUSATE SODIUM TAB PO SCH (08:00)
[2017-08-30] MEDS: MIDODRINE HCL 5 MG TAB PO SCH (08:00)
[2017-08-30] MEDS: BISACODYL 10 MG SUPP PR SCH (08:00)
[2017-08-30] MEDS: PSYLLIUM METAMUCIL 1 PKT PO SCH (08:01)
[2017-08-30] MEDS: LIDOCAINE 4%/MENTHOL 1% PATCH TD SCH (08:01)
[2017-08-30] MEDS: ENOXAPARIN 30 MG/0.3 ML SYR SC SCH (08:01)
[2017-08-30 08:07] VITALS: BP 100/48
== END 2017-08-30 10:30 | DRG 958 ==
LOC: F2N 08-22 00:51
PROVIDERS: ADMIT Surgery; ATTEND Surgery
DX: S22.062A Unstable burst fracture of T7-T8 vertebra, initial encounter for closed fracture (principal); S24.113A Complete lesion at T7-T10 level of thoracic spinal cord, initial encounter; S27.1XXA Traumatic hemothorax, initial encounter; S12.691A Other nondisplaced fracture of seventh cervical vertebra, initial encounter for closed fracture; S22.42XA Multiple fractures of ribs, left side, initial encounter for closed fracture; G82.20 Paraplegia, unspecified; S22.038A Other fracture of third thoracic vertebra, initial encounter for closed fracture; S06.0X0A Concussion without loss of consciousness, initial encounter; S43.101A Unspecified dislocation of right acromioclavicular joint, initial encounter; V18.0XXA Pedal cycle driver injured in noncollision transport accident in nontraffic accident, initial encounter; Y93.55 Activity, bike riding; R40.2411 Glasgow coma scale score 13-15, in the field [EMT or ambulance]; D64.9 Anemia, unspecified; N31.9 Neuromuscular dysfunction of bladder, unspecified
CPT/HCPCS: 82947-QW; 92523-GN; 97112-GP; 97161-GP; 97167-GO; 97530-GO; 97530-GP; 97535-GO; C1713; J0171; J0690; J1100; J1170; J1650; J2270; J2370; J2405; J2704; J2765; J2997; J3010; P9041